=== PATIENT | female | born 1960 | race Caucasian/White ===

== ENCOUNTER 2016-12-17 05:33 | Inpatient (IN) | payer OTHER ==
[2016-12-17] MEDS ORDERED: LR 1,000 ML IV ONE (05:59)
[2016-12-17] MEDS ORDERED: VANCOMYCIN 1.5 GM in D5W 250 ML IV ONE (06:30)
[2016-12-17] MEDS ORDERED: CHLORHEXIDINE GLUC HIBICLENS 118 ML BTL TP ONE (06:30)
[2016-12-17] MEDS ORDERED: BACITRACIN 50,000 UNITS/10 ML SYR IRR ONE (06:37)
[2016-12-17] MEDS ORDERED: BUPIVACAINE/EPI 0.25% 30 ML SDV ONE (06:37)
[2016-12-17] MEDS ORDERED: LORazepam 1 MG TAB PO PRN (07:10)
[2016-12-17] MEDS ORDERED: oxyCODONE IR 5 MG TAB PO PRN (07:10)
[2016-12-17] MEDS ORDERED: HYDROmorphONE/DILAUDID 6 MG/30 ML PCA IV PRN (07:11)
[2016-12-17] MEDS ORDERED: ONDANSETRON DISINTEGRATING 4 MG TAB PO PRN (07:11)
[2016-12-17] MEDS ORDERED: ACETAMINOPHEN 325 MG TAB PO PRN (07:11)
[2016-12-17] MEDS ORDERED: POLYETHYLENE GLYCOL 3350 17 GM PKT PO PRN (07:11)
[2016-12-17] MEDS ORDERED: HYDROmorphONE/DILAUDID 1 MG/ML SYR IVP PRN (07:11)
[2016-12-17] MEDS ORDERED: BISACODYL 10 MG SUPP PR PRN (07:11)
[2016-12-17] MEDS ORDERED: LACTULOSE 20 GM/30 ML UDCUP PO PRN (07:11)
[2016-12-17] MEDS ORDERED: TEMAZEPAM 15 MG CAP PO PRN (07:11)
[2016-12-17] MEDS ORDERED: ONDANSETRON 4 MG/2 ML VIAL IVP PRN (07:11)
[2016-12-17] MEDS ORDERED: MAGNESIUM HYDROXIDE 30 ML UDCUP PO PRN (07:11)
[2016-12-17] MEDS ORDERED: HYDROCODONE/APAP 10/325 TAB PO PRN (07:11)
[2016-12-17] MEDS ORDERED: DIAZEPAM 5 MG TAB PO PRN (07:11)
[2016-12-17] MEDS ORDERED: DIAZEPAM 10 MG/2 ML SYR IVP PRN (07:11)
[2016-12-17] MEDS ORDERED: NALOXONE HCL 0.4 MG/ML INJ IVP PRN (07:11)
[2016-12-17] MEDS ORDERED: diphenhydrAMINE 25 MG CAP PO PRN (07:11)
[2016-12-17] MEDS ORDERED: NS W/ 20 KCl/L 1,000 ML IV SCH (07:15)
[2016-12-17] MEDS ORDERED: THROMBIN (RECOMBINANT) 5,000 UNIT VIAL TP ONE (07:18)
[2016-12-17] MEDS ORDERED: fentaNYL 100 MCG/2 ML INJ ONE ×2 (07:19→08:27)
[2016-12-17] MEDS ORDERED: PROPOFOL/EMULSION 500 MG/50 ML BOTTLE IV ONE (07:19)
[2016-12-17] MEDS ORDERED: MIDAZOLAM 2 MG/2 ML VIAL ONE (07:22)
[2016-12-17] MEDS ORDERED: VANCOMYCIN 1.5 GM in D5W 250 ML IV SCH (07:30)
[2016-12-17] MEDS ORDERED: DEXAMETHASONE 4 MG/ML VIAL ONE ×2 (08:22→08:23)
[2016-12-17] MEDS ORDERED: GLYCOPYRROLATE 0.2 MG/1 ML VIAL ONE ×2 (08:22→08:23)
[2016-12-17] MEDS ORDERED: METOCLOPRAMIDE 10 MG/2 ML VIAL ONE (08:22)
[2016-12-17] MEDS ORDERED: NEOSTIGMINE METHYLSULFATE 5 MG/5 ML SYR ONE (08:22)
[2016-12-17] MEDS ORDERED: LIDOCAINE 2% 5 ML SDV ONE (08:22)
[2016-12-17] MEDS ORDERED: ROCURONIUM 100 MG/10 ML VIAL ONE (08:22)
[2016-12-17] MEDS ORDERED: ONDANSETRON 4 MG/2 ML VIAL ONE (08:22)
[2016-12-17] MEDS ORDERED: PROPOFOL 200 MG/20 ML VIAL ONE (08:23)
[2016-12-17] MEDS ORDERED: epHEDrine SULFATE 10 MG/ML SYR ONE (09:51)
--- NOTE | 2016-12-17 10:21 | SOAPPROG ---
SOAP Progress Note Assessment/Plan: Post Op Visit S: Awake and alert. NAD. Pt with expected back pain O: AFVSS/PERRLA/EOMI no droop CN 2-12 grossly 5/5 BUE/BLE = +CDI A/P 56 yo female that is s/p removal of hardware T7-L3 -orders in -call with any questions or concerns -take medications as directed -pt seen by Dr Rodriguez as well 12/17/16 10:17 Objective: Vital Signs Temp Pulse Resp BP Pulse Ox 36.8 C 60 16 103/56 L 100 12/17/16 10:06 12/17/16 10:06 12/17/16 10:06 12/17/16 10:06 12/17/16 10:06 12/16/16 12/17/16 12/18/16 05:59 05:59 05:59 Intake Total 1000 Output Total 50 Balance 950 ICD10 Worksheet Patient Problems: Problems Problem Status Diagnosed Back pain Acute S/P hardware removal Acute - ICD10 Problem Qualifiers (1) S/P hardware removal (2) Back pain
[2016-12-17] MEDS: SENNOSIDES/DOCUSATE SODIUM TAB PO SCH ×2 (10:44→21:21)
[2016-12-17] MEDS: morphINE SR 15 MG TAB PO SCH ×2 (10:44→21:21)
[2016-12-17] MEDS: FAMOTIDINE 20 MG/NACL 50 ML IV SCH ×2 (10:44→21:34)
--- NOTE | 2016-12-17 11:20 | GOP ---
[f rep st] OPERATIVE REPORT DATE OF OPERATION: 12/17/2016 SURGEON: Rhina Rodriguez MD HYDRODYNAMICIST: Kendall Arthur PA-C PREOPERATIVE DIAGNOSIS: Painful thoracolumbar hardware, probable successful fusion. POSTOPERATIVE DIAGNOSIS: Painful thoracolumbar hardware, probable successful fusion. Prominent spin ous process at the apex of the thoracic spine. PROCEDURE PERFORMED: Exploration of spinal fusion, removal of posterior segmental hardware, removal of posterior thoracic spinous process in the thoracic spine at 3 levels (27859, [id number]), fluoroscopy. FINDINGS: ESTIMATED BLOOD LOSS: 100 cc. INDICATIONS: The patient is a 56-year-old who underwent thoracolumbar fusion for unstable spinal inj ury about 2 years ago and complained of pain from the hardware itself. There were no complications f rom the surgery noted, and she appeared to achieve a solid bony union. CT scan was performed demonst rating solid bony union throughout that area of the fusion site, and she desired to have the hardware removed. It was exquisitely painful. She had a very thin body habitus, and she wanted to have this removed, and I thought there was a reasonable chance this would help her discomfort. She knew there was a chance that she could fracture through the fusion mass, and she accepted these risks and wante d to proceed. She knew there was a slight risk of injury to the nervous system upon removal, and reinier t the removal would be painful, but she also wanted to proceed despite these risks. DESCRIPTION OF PROCEDURE: The patient was taken to the operating room, placed in supine position. G eneral anesthesia was begun. She was flipped prone on the Williams table. Care was taken to pad all points of contact. Her back was sterilely prepped and draped in the usual fashion. C-arm was not in troduced to the field. She had extremely prominent rostral hardware in the thoracic spine that was e asily palpated and poking through the skin, but it was in good position and not malpositioned, but th is was easily visible in the prone position. She also had prominent thoracic spinous processes at th e apex of her thoracic curve. These, too, were quite prominent and visible through the skin. She wa s sterilely prepped and draped. We exposed the entire previous incision. The subcutaneous tissue wa s dissected using a plasma blade rather than a Bovie cautery, and we exposed all of her prior hardwar e from the 2 rostral hooks to the inferior right-sided hook, and the inferior left pedicle screw. Th ere were 3 crosslinks, all of them were well-seated. We exposed all of the hardware, removed the cap screws, both from the crosslinks and the tulips of the 10 pedicle screws that were placed. These we re all removed with ease. We removed the cap screws from the 3 hooks that had been used in the const ruct. We then removed both rods, and then spent time removing all of the pedicle screws. These came out with ease. There was a solid bony union posterolaterally and across the lamina. We then remove d the inferior hook with relative ease and the superior right hook with relative ease. They simply r otated out without any difficulty. The rostral hook on the patient's left-hand side was encased in s omewhat more bone, and we drilled out the bone on the caudal aspect of the tulip, exposing the hook i tself and then rotated this easily out of the spinal canal. No force was used to remove the hooks th emselves, they simply were rotated along the trajectory of their scarred-in track, and this was done with relative ease. We then shot AP x-rays throughout the area of the construct, confirming the yuly francisco javier of all of the hardware. We were then inspecting the area. There was indeed a solid bony union t hroughout the area of the hardware, but she continued to have a prominent thoracic spinous process at the apex of her curve; this was removed with a Le[place]ell. We then remove 2 additional spinous process es rostral to this, consistent with our physical exam that we had appreciated when the patient was pr one. There was very minimal bleeding during the surgery. We elected not to place a subfascial drain . We irrigated with antibiotic saline throughout the surgery. We then closed the fascia with interr upted Vicryl sutures. Becca fascia was reapproximated with interrupted Vicryl sutures. We then use d Vicryl inverted sutures in the skin, and Steri-Strips were applied. The patient was reversed from anesthesia, extubated, and transferred to the recovery room in stable condition. There were no compl ications. COMPLICATIONS: None. /[id number]/MODL
[2016-12-17] MEDS: oxyCODONE IR 5 MG TAB PO PRN ×4 (12:08→21:21)
[2016-12-17] MEDS: METHOCARBAMOL 750 MG TAB PO PRN ×2 (12:08→17:47)
[2016-12-17] MEDS ORDERED: CAFFEINE PO SCH (14:00)
[2016-12-17] MEDS ORDERED: ACETAMINOPHEN PO SCH (14:00)
--- NOTE | 2016-12-17 16:07 | DX ---
Fluoroscopy provided for spine surgery Indication: Hardware removal. Fluoroscopy time: 0.9 seconds. Dose: 0.52 mGy Technique: 3 intraoperative spot films. COMPARISON: Thoracolumbar spine series dated June 27, 2016. Findings: 3 spot films reveal removal of hardware. Impression: Fluoroscopy provided for removal of spinal hardware.
[2016-12-17] MEDS ORDERED: VANCOMYCIN HCL/NORMAL SALINE 250 ML IV ONE (19:00)
[2016-12-17] MEDS: FAMOTIDINE 20 MG TAB PO SCH (21:22)
[2016-12-18] MEDS: oxyCODONE IR 5 MG TAB PO PRN ×4 (00:16→09:22)
[2016-12-18] MEDS: METHOCARBAMOL 750 MG TAB PO PRN ×2 (03:47→09:22)
--- NOTE | 2016-12-18 07:34 | NEUSURGPN ---
Date of Surgery: 12/17/16 Post Op Day: 1 Assessment/Plan: Assessment: 56 yo female that is s/p removal of hardware T7-L3 Plan: -s/p hardware removal: doing better this am -continue with current pain management -PT/OT this am -no brace needed -plan for dc later this am -call with any questions or concerns -take medications as directed -pt seen by Dr Rodriguez as well 12/17/16 10:17 Subjective: Awake and alert. NAD. No neck/chest/abd or gu complaints. No f/c/n/v/d. Objective: AFVSS/PERRLA/EOMI no droop CN 2-12 grossly 5/5 BUE/BLE = +CDI Neuro Check Frequency: per routine Urinary Catheter in Place: No - Physician Discussed Patient with Dr.: Michael Patient Seen by : Michael Neurosurgery Physical Exam - Vitals, I&O, Labs I and O 12/17/16 12/18/16 12/19/16 05:59 05:59 05:59 Intake Total 3060 Output Total 2450 Balance 610 Intake: Oral (ml) 2060 IV Intake (ml) 1000 Output: Urine (ml) 2400 Toilet 2400 Estimated Blood Loss (ml) 50 Other: Number of Voids Toilet 1 Vital Signs Temp Pulse Resp BP Pulse Ox 37.5 C 89 17 104/51 L 95 12/18/16 03:39 12/18/16 03:39 12/18/16 03:39 12/18/16 03:39 12/18/16 03:39 ICD10 Worksheet Patient Problems: Problems Problem Status Diagnosed Back pain Acute S/P hardware removal Acute - ICD10 Problem Qualifiers (1) S/P hardware removal (2) Back pain
[2016-12-18 07:52] VITALS: BP 112/65; PULSE 80; RESP 14; TEMP 97.7; O2SAT 91
[2016-12-18] MEDS: SENNOSIDES/DOCUSATE SODIUM TAB PO SCH (09:21)
[2016-12-18] MEDS: FAMOTIDINE 20 MG TAB PO SCH (09:22)
[2016-12-18] MEDS: morphINE SR 15 MG TAB PO SCH (10:34)
[2016-12-20] MEDS ORDERED: ENOXAPARIN 40 MG/0.4 ML SYR SC SCH (09:00)
== END 2016-12-18 12:21 | disposition home or self-care (01) | DRG 497 ==
LOC: F3N 05:33 → OBSVTOIN 05:33 → F3N 10:47
PROVIDERS: ADMIT Neurological Surgery; ATTEND Neurological Surgery
PROC: 0PB40ZZ Excision of Thoracic Vertebra, Open Approach (ICD-10-PCS; principal; 2016-12-17 07:30)
PROC: 0RP Upper Joints, Removal (ICD-10-PCS; principal; 2016-12-17 07:30)
DX: T84.84XA Pain due to internal orthopedic prosthetic devices, implants and grafts, initial encounter (principal)
CPT/HCPCS: 97161-GP; 97166-GO; 97535-GO; J1100; J2250; J2405; J2704; J2710; J2765; J3010; J3370

== ENCOUNTER → 2017-08-20 | Outpatient (CLI) | payer OTHER | LOC: FIMAGING 09:52 | PROVIDERS: ATTEND Family Medicine | DX: Z12.31 Encounter for screening mammogram for malignant neoplasm of breast (principal) | CPT/HCPCS: G0202 ==

== ENCOUNTER → 2018-10-07 | Outpatient (CLI) | payer OTHER | LOC: FIMAGING 11:34 | PROVIDERS: ATTEND Family Medicine | DX: Z12.31 Encounter for screening mammogram for malignant neoplasm of breast (principal) ==